=== PATIENT | male | born 1950 | race Caucasian/White ===

== ENCOUNTER 2020-12-05 17:18 | Inpatient (IN) | payer BC, OTHER ==
[2020-12-05 17:22] VITALS: BMI 26.8
[2020-12-05] MEDS ORDERED: ATORVASTATIN CA 80 MG TABLET (FP) PO ONE (18:14)
[2020-12-05 18:30] LABS: HEMATOCRIT 46.3 % (35.4-49); HEMOGLOBIN 15.7 GM/dL (11.7-16.9); MCH 28.9 pg (25.7-33.7); MCHC 33.9 g/dl (32.0-35.9); MEAN CELL VOLUME 85.3 fl (80-96); MEAN PLT VOLUME 8.9 fl (7.5-11.1); PLATELET COUNT 229 10^3/uL (134-434); RBC 5.43 M/mm3 (4.00-5.60); RDW 12.3 % (11.9-15.9); WHITE BLOOD COUNT 9.4 K/mm3 (4.0-10.0)
[2020-12-05 18:32] LABS: PROTHROMBIN TIME (PATIENT) 12.3 SEC (9.7-13.0)
[2020-12-05 18:34] LABS: ACTIVATED PTT 24.1 SECONDS (25.2-36.5)
[2020-12-05 18:43] LABS: CHLORIDE 105 mmol/L (98-107); SODIUM 138 mmol/L (136-145)
[2020-12-05 18:46] LABS: ALBUMIN 3.7 g/dl (3.4-5.0); ANION GAP 8 MMOL/L (8-16); BLOOD UREA NITROGEN 12.5 mg/dL (7-18); CALCIUM 8.8 mg/dL (8.5-10.1); CO2 24 mmol/L (21-32)
[2020-12-05 18:47] LABS: GLUCOSE,RANDOM 129 mg/dL (74-106)
[2020-12-05 18:49] LABS: SGOT/AST 20 U/L (15-37); SGPT/ALT 35 U/L (13-61); TRIGLYCERIDES 82 mg/dL (0-150)
[2020-12-05 18:50] LABS: CHOLESTEROL 143 mg/dL (50-200)
[2020-12-05 18:51] LABS: BILIRUBIN,TOTAL 0.3 mg/dL (0.2-1); HDL CHOLESTEROL 33 mg/dL (40-60); LDL CHOLESTEROL (ONLY SJRH) 93 mg/dL (5-100); TOT PROT 7.5 g/dl (6.4-8.2)
[2020-12-05 18:52] LABS: ALK PHOS 70 U/L (45-117)
[2020-12-05 19:30] LABS: PH,URINE 6.5 (5.0-8.0); URINE APPEARANCE CLEAR; URINE BILIRUBIN NEGATIVE (NEGATIVE); URINE COLOR YELLOW; URINE GLUCOSE (UA) NEGATIVE (NEGATIVE); URINE KETONE NEGATIVE (NEGATIVE); URINE LEUK ESTERASE NEGATIVE (NEGATIVE); URINE NITRITE NEGATIVE (NEGATIVE); URINE PROTEIN NEGATIVE (NEGATIVE); URINE UROBILINOGEN 0.2 mg/dL (0.2-1.0)
[2020-12-05 20:00] LABS: ANISOCYTOSIS 0; MACROCYTOSIS 0; PLATELET ESTIMATE NORMAL
[2020-12-05] MEDS ORDERED: ASPIRIN 81 MG CHEWABLE TABLETS ONE (20:47)
[2020-12-05] MEDS ORDERED: ATORVASTATIN CA 80 MG TABLET (FP) ONE (20:48)
[2020-12-05] MEDS: ASPIRIN 81 MG CHEWABLE TABLETS PO SCH (20:51)
[2020-12-05] MEDS ORDERED: ASPIRIN 81 MG CHEWABLE TABLETS PO ONE ×2 (23:02)
[2020-12-06 07:06] LABS: HEMATOCRIT 42.5 % (35.4-49); HEMOGLOBIN 14.8 GM/dL (11.7-16.9); MCH 29.6 pg (25.7-33.7); MCHC 34.8 g/dl (32.0-35.9); MEAN CELL VOLUME 85.2 fl (80-96); MEAN PLT VOLUME 8.7 fl (7.5-11.1); PLATELET COUNT 213 10^3/uL (134-434); RBC 4.98 M/mm3 (4.00-5.60); RDW 12.4 % (11.9-15.9)
[2020-12-06 07:16] LABS: CALCIUM 8.4 mg/dL (8.5-10.1)
[2020-12-06 07:17] LABS: ALBUMIN 3.2 g/dl (3.4-5.0); BLOOD UREA NITROGEN 13.5 mg/dL (7-18); MAGNESIUM 2.3 mg/dL (1.8-2.4)
[2020-12-06 07:20] LABS: CREATININE 0.9 mg/dL (0.55-1.3); PHOSPHOROUS 3.3 mg/dL (2.5-4.9)
[2020-12-06 07:21] LABS: BILIRUBIN,TOTAL 0.4 mg/dL (0.2-1); TOT PROT 6.6 g/dl (6.4-8.2)
[2020-12-06] MEDS ORDERED: PATIENT'S OWN MEDICATION (NON-FORMULARY) (Amlodipine Besylate/Benazepril [Lotrel 5-40 Mg C PO SCH (10:00)
[2020-12-06] MEDS ORDERED: amLODIPine BESYLATE 5 MG TABLET (FP) PO SCH (10:00)
[2020-12-06] MEDS ORDERED: LISINOPRIL 20 MG TABLET PO SCH (10:00)
[2020-12-06] MEDS ORDERED: TAMSULOSIN HCL 0.4 MG CAP ONE (11:26)
[2020-12-06] MEDS ORDERED: ASPIRIN 81 MG CHEWABLE TABLETS ONE (11:26)
[2020-12-06] MEDS ORDERED: ENOXAPARIN NA (PORCINE) 40 MG/0.4 ML DISP.SYRIN SQ ONE (11:27)
[2020-12-06] MEDS: TAMSULOSIN HCL 0.4 MG CAP PO SCH (11:32)
[2020-12-06] MEDS: ENOXAPARIN NA (PORCINE) 40 MG/0.4 ML DISP.SYRIN SQ SCH (11:32)
[2020-12-06] MEDS: ASPIRIN 81 MG CHEWABLE TABLETS PO SCH (11:32)
[2020-12-06] MEDS ORDERED: CLOPIDOGREL BISULFATE 75 MG TABLET (FP) ONE (14:08)
[2020-12-06] MEDS: CLOPIDOGREL BISULFATE 75 MG TABLET (FP) PO SCH (14:10)
[2020-12-06] MEDS ORDERED: amLODIPine BESYLATE 5 MG TABLET (FP) ONE (17:16)
[2020-12-06] MEDS ORDERED: LISINOPRIL 20 MG TABLET ONE (17:16)
[2020-12-06] MEDS: amLODIPine BESYLATE 5 MG TABLET (FP) PO SCH (17:21)
[2020-12-06] MEDS: LISINOPRIL 20 MG TABLET PO SCH (17:21)
[2020-12-06] MEDS ORDERED: ATORVASTATIN CA 80 MG TABLET (FP) ONE (21:55)
[2020-12-06] MEDS: ATORVASTATIN CA 80 MG TABLET (FP) PO SCH (22:01)
[2020-12-07 08:39] LABS: HEMATOCRIT 43.9 % (35.4-49); RBC 5.09 M/mm3 (4.00-5.60)
[2020-12-07 08:40] LABS: BASO % 0.4 % (0-2.0); EOS % 2.4 % (0-4.5); LYMPH % 27.3 % (8-40); MCH 29.5 pg (25.7-33.7); MCHC 34.2 g/dl (32.0-35.9); MEAN CELL VOLUME 86.2 fl (80-96); MEAN PLT VOLUME 9.2 fl (7.5-11.1); MONO % 9.6 % (3.8-10.2); NEUT % 60.3 % (42.8-82.8); PLATELET COUNT 215 10^3/uL (134-434); RDW 12.3 % (11.9-15.9)
[2020-12-07 08:48] LABS: BLOOD UREA NITROGEN 14.5 mg/dL (7-18); CALCIUM 8.8 mg/dL (8.5-10.1); CHLORIDE 106 mmol/L (98-107); CO2 31 mmol/L (21-32); GLUCOSE,RANDOM 111 mg/dL (74-106); MAGNESIUM 2.5 mg/dL (1.8-2.4); SODIUM 141 mmol/L (136-145)
[2020-12-07 08:49] LABS: ALBUMIN 3.1 g/dl (3.4-5.0); ALK PHOS 58 U/L (45-117); BILIRUBIN,TOTAL 0.6 mg/dL (0.2-1); SGOT/AST 17 U/L (15-37); SGPT/ALT 30 U/L (13-61); TOT PROT 6.5 g/dl (6.4-8.2)
[2020-12-07] MEDS ORDERED: TAMSULOSIN HCL 0.4 MG CAP ONE (09:07)
[2020-12-07] MEDS ORDERED: amLODIPine BESYLATE 5 MG TABLET (FP) ONE (09:44)
[2020-12-07] MEDS ORDERED: LISINOPRIL 20 MG TABLET ONE (09:44)
[2020-12-07] MEDS ORDERED: CLOPIDOGREL BISULFATE 75 MG TABLET (FP) ONE (09:44)
[2020-12-07] MEDS ORDERED: ENOXAPARIN NA (PORCINE) 40 MG/0.4 ML DISP.SYRIN SQ ONE (09:45)
[2020-12-07] MEDS: amLODIPine BESYLATE 5 MG TABLET (FP) PO SCH (10:18)
[2020-12-07] MEDS: TAMSULOSIN HCL 0.4 MG CAP PO SCH (10:18)
[2020-12-07] MEDS: ENOXAPARIN NA (PORCINE) 40 MG/0.4 ML DISP.SYRIN SQ SCH (10:18)
[2020-12-07] MEDS: LISINOPRIL 20 MG TABLET PO SCH (10:19)
[2020-12-07] MEDS: CLOPIDOGREL BISULFATE 75 MG TABLET (FP) PO SCH (10:19)
[2020-12-07] MEDS ORDERED: ATORVASTATIN CA 80 MG TABLET (FP) ONE (22:03)
[2020-12-07] MEDS: ATORVASTATIN CA 80 MG TABLET (FP) PO SCH (22:08)
[2020-12-08] MEDS: TAMSULOSIN HCL 0.4 MG CAP PO SCH (09:27)
[2020-12-08] MEDS: CLOPIDOGREL BISULFATE 75 MG TABLET (FP) PO SCH (09:28)
[2020-12-08] MEDS: LISINOPRIL 20 MG TABLET PO SCH (09:28)
[2020-12-08] MEDS: amLODIPine BESYLATE 5 MG TABLET (FP) PO SCH (09:28)
[2020-12-08] MEDS: ENOXAPARIN NA (PORCINE) 40 MG/0.4 ML DISP.SYRIN SQ SCH (09:28)
[2020-12-08 13:38] LABS: BASO % 0.5 % (0-2.0); EOS % 1.7 % (0-4.5); HEMATOCRIT 46.3 % (35.4-49); HEMOGLOBIN 15.9 GM/dL (11.7-16.9); LYMPH % 23.4 % (8-40); MCH 29.6 pg (25.7-33.7); MCHC 34.3 g/dl (32.0-35.9); MEAN CELL VOLUME 86.4 fl (80-96); MEAN PLT VOLUME 9.5 fl (7.5-11.1); MONO % 7.3 % (3.8-10.2); NEUT % 67.1 % (42.8-82.8); PLATELET COUNT 236 10^3/uL (134-434); RBC 5.36 M/mm3 (4.00-5.60); RDW 12.2 % (11.9-15.9); WHITE BLOOD COUNT 8.4 K/mm3 (4.0-10.0)
[2020-12-08 14:13] LABS: CALCIUM 9.2 mg/dL (8.5-10.1)
[2020-12-08 14:14] LABS: ALBUMIN 3.6 g/dl (3.4-5.0); MAGNESIUM 2.2 mg/dL (1.8-2.4)
[2020-12-08 14:17] LABS: BILIRUBIN,TOTAL 0.6 mg/dL (0.2-1); CREATININE 1.1 mg/dL (0.55-1.3); TOT PROT 7.2 g/dl (6.4-8.2)
[2020-12-08 14:33] LABS: BLOOD UREA NITROGEN 21.1 mg/dL (7-18)
[2020-12-08] MEDS: ATORVASTATIN CA 80 MG TABLET (FP) PO SCH (22:01)
[2020-12-09 07:42] LABS: BASO % 0.5 % (0-2.0); EOS % 2.4 % (0-4.5); HEMOGLOBIN 16.2 GM/dL (11.7-16.9); LYMPH % 22.5 % (8-40); MCH 29.4 pg (25.7-33.7); MCHC 33.7 g/dl (32.0-35.9); MEAN PLT VOLUME 9.4 fl (7.5-11.1); MONO % 8.4 % (3.8-10.2); NEUT % 66.2 % (42.8-82.8); PLATELET COUNT 214 10^3/uL (134-434); RBC 5.51 M/mm3 (4.00-5.60); WHITE BLOOD COUNT 9.5 K/mm3 (4.0-10.0)
[2020-12-09 07:59] LABS: ALBUMIN 3.7 g/dl (3.4-5.0); MAGNESIUM 2.2 mg/dL (1.8-2.4)
[2020-12-09 08:04] LABS: BILIRUBIN,TOTAL 0.7 mg/dL (0.2-1); TOT PROT 7.3 g/dl (6.4-8.2)
[2020-12-09] MEDS: LISINOPRIL 20 MG TABLET PO SCH (09:16)
[2020-12-09] MEDS: ENOXAPARIN NA (PORCINE) 40 MG/0.4 ML DISP.SYRIN SQ SCH (09:16)
[2020-12-09] MEDS: TAMSULOSIN HCL 0.4 MG CAP PO SCH (09:16)
[2020-12-09] MEDS: CLOPIDOGREL BISULFATE 75 MG TABLET (FP) PO SCH (09:16)
[2020-12-09] MEDS: amLODIPine BESYLATE 5 MG TABLET (FP) PO SCH (09:16)
[2020-12-09] MEDS ORDERED: LIDOCAINE VISCOUS 2% ORAL/TOP 15 ML UNIT-DOSE CUP ONE (12:19)
[2020-12-09] MEDS ORDERED: LIDOCAINE VISCOUS 2% ORAL/TOP 15 ML UNIT-DOSE CUP PO ONE (13:14)
[2020-12-09 15:44] VITALS: BP 146/73; PULSE 87; TEMP 98.8
== END 2020-12-09 16:15 | disposition home or self-care (01) | DRG 66 ==
LOC: JER 17:18 → JERBED 19:36 → J4S 12-08 00:02
PROVIDERS: ADMIT Internal Medicine; ATTEND Nurse Practitioner Acute Care
PROC: B24BZZ4 Ultrasonography of Heart with Aorta, Transesophageal (ICD-10-PCS; principal; 2020-12-09 13:00)
DX: I63.9 Cerebral infarction, unspecified (principal); I10 Essential (primary) hypertension; N40.0 Benign prostatic hyperplasia without lower urinary tract symptoms; I45.10 Unspecified right bundle-branch block; I25.10 Atherosclerotic heart disease of native coronary artery without angina pectoris; R94.31 Abnormal electrocardiogram [ECG] [EKG]
CPT/HCPCS: 36415; 71045-TC-FY; 80053; 80061; 81003; 82550; 82962; 83036; 83735; 84100; 84443; 84484; 85025; 85027; 85610; 85730; 86850; 86900; 86901; 93005; 93010; 93312; 93325; 93880-TC; 97116-GP; 97161-GP; 99285-25; C9803; U0003; U0005